=== PATIENT | female | born 1965 | race Caucasian/White ===

== ENCOUNTER 2018-02-14 23:27 | Inpatient (IN) | payer BC ==
[~2018-02-14] VITALS: Ht 154.9 cm; Wt 76.0 kg
[2018-02-14] MEDS ORDERED: SODIUM CHLORIDE 0.9% 1000ML 1,000 ML IV STA ×2 (23:40)
[2018-02-14] MEDS ORDERED: CHLORDIAZEPOXIDE 25 MG CAP PO ONE (23:45)
[2018-02-14] MEDS ORDERED: MULTI-VITAMIN INFUSION INJ 10 ML, THIAMINE HCL INJ 100 MG, FoLIC ACID INJ 1 MG in SODIU... IV ONE (23:45)
[2018-02-14 23:52] LABS: BASO % 0.1 %; BASO ABS # 0.01 K/uL (0-0.2); EOS % 0.4 %; EOS ABS # 0.04 K/uL (0-0.5); HEMATOCRIT 43.6 % (37-47); HEMOGLOBIN 15.7 g/dL (12.0-16.0); IG# 0.02 K/uL (0.00-0.02); LYMPH % 23.1 %; MEAN CELL VOLUME 90.8 fL (80-100); MEAN CORPUSCULAR HEMOGLOBIN 32.7 pg (25-34); MEAN PLATELET VOLUME 9.3 fL (7.4-10.4); MONO % 7.9 %; MONO ABS # 0.75 K/uL (0.11-0.59); NEUT % 68.3 %; NEUT ABS # 6.51 K/uL (1.4-6.5); PLATELET COUNT 304 K/uL (130-400); RED CELL DISTRIBUTION WIDTH CV 13.1 % (11.5-14.5); RED CELL DISTRIBUTION WIDTH SD 43.1 fL (36.4-46.3); WHITE BLOOD COUNT 9.53 K/uL (4.8-10.8)
[2018-02-15] VITALS (8 sets, daily range): BP systolic 111–139; BP diastolic 68–85; PULSE 68–109; TEMP 36.6–36.9; O2SAT 94–97; Ht 154.9 cm; Wt 76.0 kg
[2018-02-15 00:02] LABS: ALBUMIN 4.3 gm/dl (3.4-5.0); ALT/SGPT 43 U/L (12-78); AST/SGOT 42 U/L (15-37); BLOOD UREA NITROGEN 5 mg/dl (7-18); CALCIUM 9.2 mg/dl (8.5-10.1); CARBON DIOXIDE 31 mmol/L (21-32); CREATININE 0.73 mg/dl (0.60-1.20); GLUCOSE 109 mg/dl (70-99); INR 0.9 (0.9-1.1); LIPASE 147 U/L (73-393); POTASSIUM 3.2 mmol/L (3.5-5.1); PTT PATIENT 30.4 SECONDS (21.0-31.0); SODIUM 131 mmol/L (136-145)
[2018-02-15 00:05] LABS: ALKALINE PHOSPHATASE 111 U/L (45-117); TOTAL PROTEIN 9.3 gm/dl (6.4-8.2)
[2018-02-15] MEDS ORDERED: HYDR25TA4 PO (00:23)
[2018-02-15] MEDS ORDERED: PRLSR20 PO (00:23)
[2018-02-15] MEDS ORDERED: POTASSIUM CHLORIDE 10 MEQ TABCR PO STA (01:15)
[2018-02-15] MEDS ORDERED: NITROGLYCERIN 0.4 MG SL PER TAB CHARGE SL PRN (01:45)
[2018-02-15] MEDS ORDERED: GABAPENTIN 600 MG TAB PO SCH (01:45)
[2018-02-15] MEDS ORDERED: ALUMINUM/MAGNESIUM/SIMETH (MAALOX MAX) 30 ML UDC PO PRN (01:45)
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
[2018-02-15] MEDS: GABAPENTIN 1200MG LOADING DOSE PO SCH (03:30)
[2018-02-15] MEDS: LORAZEPAM 2 MG/ML 1 ML VIAL IV PRN (03:30)
[2018-02-15] MEDS: ONDANSETRON INJ 2 MG/ML 2 ML VIAL IV PRN (03:43)
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
[2018-02-15] MEDS: ENOXAPARIN 40 MG/0.4 ML SYR SC SCH (06:00)
--- NOTE | 2018-02-15 06:49 | DIAGNOSTIC IMAGING REPORT ---
CHEST ONE VIEW PORTABLE HISTORY: 52 years-old Female cp acute atypical chest pain COMPARISON: None available TECHNIQUE: Portable AP view of the chest FINDINGS: Cardiomediastinal and hilar silhouettes are within normal limits. No pneumothorax, pleural effusion, focal airspace consolidation or overt pulmonary edema. Bones of the chest appear grossly intact. Degenerative changes are noted about the bilateral shoulders. IMPRESSION: No acute process. The above report was generated using voice recognition software. It may contain grammatical, syntax or spelling errors. Electronically signed by: Moiz Blanton M.D. 02/15/2018 6:48 AM Dictated Date/Time: 02/15/2018 6:46 AM
[2018-02-15 07:05] LABS: BASO % 0.2 %; BASO ABS # 0.01 K/uL (0-0.2); EOS % 0.8 %; EOS ABS # 0.04 K/uL (0-0.5); HEMATOCRIT 35.7 % (37-47); HEMOGLOBIN 12.8 g/dL (12.0-16.0); IG# 0.02 K/uL (0.00-0.02); LYMPH % 39.5 %; LYMPH ABS # 1.94 K/uL (1.2-3.4); MEAN CELL VOLUME 91.3 fL (80-100); MEAN CORPUSCULAR HEMOGLOBIN 32.7 pg (25-34); MEAN CORPUSCULAR HGB CONC 35.9 g/dl (32-36); MEAN PLATELET VOLUME 9.1 fL (7.4-10.4); MONO % 9.2 %; MONO ABS # 0.45 K/uL (0.11-0.59); NEUT % 49.9 %; NEUT ABS # 2.45 K/uL (1.4-6.5); PLATELET COUNT 214 K/uL (130-400); RED CELL DISTRIBUTION WIDTH CV 13.2 % (11.5-14.5); RED CELL DISTRIBUTION WIDTH SD 43.7 fL (36.4-46.3); WHITE BLOOD COUNT 4.91 K/uL (4.8-10.8)
[2018-02-15 07:20] LABS: CALCIUM 7.9 mg/dl (8.5-10.1); CREATININE 0.63 mg/dl (0.60-1.20); POTASSIUM 3.4 mmol/L (3.5-5.1)
[2018-02-15] MEDS: HYDROCHLOROTHIAZIDE 25 MG TAB PO SCH (08:18)
[2018-02-15] MEDS: PANTOprazole SOD 40 MG TAB PO SCH (08:18)
[2018-02-15] MEDS: MULTI-VITAMIN INFUSION INJ 10 ML, THIAMINE HCL INJ 100 MG, FoLIC ACID INJ 1 MG in SODIU... IV SCH (08:58)
[2018-02-15] MEDS: GABAPENTIN 600MG Q6H DOSE PO SCH ×2 (10:29→17:34)
[2018-02-15] MEDS: MAGNESIUM SULFATE 1GM / D5W 100 ML IV SCH ×2 (13:18→14:11)
[2018-02-15] MEDS ORDERED: LORAZEPAM INJ 1 MG in SYRINGE 0.5 ML IV STA (13:32)
[2018-02-15] MEDS: ACETAMINOPHEN 325 MG TAB PO PRN (22:16)
[2018-02-15] MEDS: GABAPENTIN 600MG Q8H DOSE PO SCH (23:48)
[2018-02-16] MEDS: GABAPENTIN 1200MG LOADING DOSE PO SCH (02:48)
[2018-02-16] MEDS: ACETAMINOPHEN 325 MG TAB PO PRN ×3 (02:48→21:29)
[2018-02-16 04:22] VITALS: BP 121/77; PULSE 60; TEMP 36.3; O2SAT 96
[2018-02-16] MEDS: ENOXAPARIN 40 MG/0.4 ML SYR SC SCH (05:38)
[2018-02-16 05:46] LABS: HEMATOCRIT 36.8 % (37-47); HEMOGLOBIN 12.5 g/dL (12.0-16.0); MEAN CELL VOLUME 94.1 fL (80-100); MEAN PLATELET VOLUME 9.2 fL (7.4-10.4); PLATELET COUNT 196 K/uL (130-400); RED CELL DISTRIBUTION WIDTH CV 13.4 % (11.5-14.5); WHITE BLOOD COUNT 3.37 K/uL (4.8-10.8)
[2018-02-16 06:11] LABS: CALCIUM 8.1 mg/dl (8.5-10.1); CREATININE 0.66 mg/dl (0.60-1.20); POTASSIUM 3.8 mmol/L (3.5-5.1)
[2018-02-16 06:56] LABS: EOS % 2.4 %; EOS ABS # 0.08 K/uL (0-0.5); LYMPH % 51.3 %; LYMPH ABS # 1.73 K/uL (1.2-3.4); MONO % 11.6 %; MONO ABS # 0.39 K/uL (0.11-0.59); NEUT % 34.7 %; NEUT ABS # 1.17 K/uL (1.4-6.5)
[2018-02-16 07:20] VITALS: BP 128/77; PULSE 67; TEMP 36.5; O2SAT 95
[2018-02-16] MEDS: GABAPENTIN 600MG Q8H DOSE PO SCH ×2 (07:48→16:17)
[2018-02-16] MEDS: HYDROCHLOROTHIAZIDE 25 MG TAB PO SCH (07:48)
[2018-02-16] MEDS: PANTOprazole SOD 40 MG TAB PO SCH (07:48)
[2018-02-16] MEDS: MULTI-VITAMIN INFUSION INJ 10 ML, THIAMINE HCL INJ 100 MG, FoLIC ACID INJ 1 MG in SODIU... IV SCH (08:55)
[2018-02-16] MEDS ORDERED: NURSING VERBAL MED ORDER ONE (09:15)
[2018-02-16] MEDS ORDERED: LORAZEPAM INJ 0.5 MG in SYRINGE 0.75 ML IV ONE (09:30)
[2018-02-16 11:23] VITALS: BP 130/81; PULSE 72; TEMP 36.7; O2SAT 92
[2018-02-16] MEDS: LORAZEPAM 2 MG/ML 1 ML VIAL IV PRN (14:01)
[2018-02-16 15:56] VITALS: BP 115/70; PULSE 71; TEMP 36.6; O2SAT 95
[2018-02-16] MEDS ORDERED: LORAZEPAM INJ 2 MG in SYRINGE 1 ML IV STA (15:57)
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
[2018-02-16 19:54] VITALS: BP 120/74; PULSE 63; TEMP 36.6; O2SAT 96
[2018-02-16] MEDS: ONDANSETRON INJ 2 MG/ML 2 ML VIAL IV PRN (21:29)
[2018-02-17] VITALS (7 sets, daily range): BP systolic 96–172; BP diastolic 60–87; PULSE 59–79; TEMP 36.4–36.8; O2SAT 95–99
[2018-02-17] MEDS: GABAPENTIN 1200MG LOADING DOSE PO SCH (03:22)
[2018-02-17] MEDS: LORAZEPAM 2 MG/ML 1 ML VIAL IV PRN (04:01)
[2018-02-17] MEDS: ENOXAPARIN 40 MG/0.4 ML SYR SC SCH (06:00)
[2018-02-17] MEDS: GABAPENTIN 600MG Q12H DOSE PO SCH ×2 (06:17→17:29)
[2018-02-17 07:33] LABS: EOS % 2.5 %; EOS ABS # 0.11 K/uL (0-0.5); HEMATOCRIT 36.8 % (37-47); HEMOGLOBIN 12.9 g/dL (12.0-16.0); LYMPH % 43.5 %; LYMPH ABS # 1.89 K/uL (1.2-3.4); MEAN CELL VOLUME 94.1 fL (80-100); MEAN CORPUSCULAR HGB CONC 35.1 g/dl (32-36); MEAN PLATELET VOLUME 9.2 fL (7.4-10.4); MONO % 8.8 %; MONO ABS # 0.38 K/uL (0.11-0.59); NEUT % 45.2 %; NEUT ABS # 1.96 K/uL (1.4-6.5); PLATELET COUNT 175 K/uL (130-400); RED CELL DISTRIBUTION WIDTH CV 13.2 % (11.5-14.5); RED CELL DISTRIBUTION WIDTH SD 45.2 fL (36.4-46.3); WHITE BLOOD COUNT 4.34 K/uL (4.8-10.8)
[2018-02-17] MEDS: PANTOprazole SOD 40 MG TAB PO SCH (07:58)
[2018-02-17] MEDS: HYDROCHLOROTHIAZIDE 25 MG TAB PO SCH (07:58)
[2018-02-17] MEDS: CYANOCOBALAMIN 500 MCG TAB (VIT B-12) PO SCH (07:59)
[2018-02-17] MEDS: THIAMINE HCL 50 MG TAB PO SCH (07:59)
[2018-02-17 08:03] LABS: CALCIUM 8.5 mg/dl (8.5-10.1); CREATININE 0.67 mg/dl (0.60-1.20); POTASSIUM 3.7 mmol/L (3.5-5.1)
[2018-02-17] MEDS ORDERED: LORAZEPAM INJ 1 MG in SYRINGE 0.5 ML IV ONE ×2 (09:45→15:45)
[2018-02-17] MEDS: ACETAMINOPHEN 325 MG TAB PO PRN (11:02)
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
[2018-02-17] MEDS ORDERED: hydrOXYzine HCL 25 MG TAB PO PRN (15:45)
[2018-02-18 00:02] VITALS: BP 131/82; PULSE 72; TEMP 36.6; O2SAT 93
[2018-02-18 01:45] VITALS: BP 132/84; PULSE 106; TEMP 36.6; O2SAT 98
[2018-02-18] MEDS: LORAZEPAM 2 MG/ML 1 ML VIAL IV PRN (01:47)
[2018-02-18] MEDS: GABAPENTIN 1200MG LOADING DOSE PO SCH (03:03)
[2018-02-18] MEDS: ENOXAPARIN 40 MG/0.4 ML SYR SC SCH (05:44)
[2018-02-18 07:08] VITALS: BP 132/84; PULSE 86; TEMP 36.6; O2SAT 95
[2018-02-18 07:35] LABS: BASO % 0.2 %; BASO ABS # 0.01 K/uL (0-0.2); EOS % 2.5 %; EOS ABS # 0.12 K/uL (0-0.5); HEMOGLOBIN 13.7 g/dL (12.0-16.0); IG# 0.01 K/uL (0.00-0.02); LYMPH ABS # 2.25 K/uL (1.2-3.4); MEAN CELL VOLUME 93.9 fL (80-100); MEAN CORPUSCULAR HEMOGLOBIN 32.2 pg (25-34); MEAN CORPUSCULAR HGB CONC 34.3 g/dl (32-36); MEAN PLATELET VOLUME 9.8 fL (7.4-10.4); MONO % 6.9 %; MONO ABS # 0.33 K/uL (0.11-0.59); NEUT % 43.2 %; NEUT ABS # 2.07 K/uL (1.4-6.5); PLATELET COUNT 195 K/uL (130-400); RED CELL DISTRIBUTION WIDTH SD 44.4 fL (36.4-46.3); WHITE BLOOD COUNT 4.79 K/uL (4.8-10.8)
[2018-02-18 08:02] LABS: CREATININE 0.67 mg/dl (0.60-1.20); POTASSIUM 3.9 mmol/L (3.5-5.1)
[2018-02-18] MEDS: THIAMINE HCL 50 MG TAB PO SCH (08:19)
[2018-02-18] MEDS: PANTOprazole SOD 40 MG TAB PO SCH (08:19)
[2018-02-18] MEDS: CYANOCOBALAMIN 500 MCG TAB (VIT B-12) PO SCH (08:20)
[2018-02-18] MEDS: HYDROCHLOROTHIAZIDE 25 MG TAB PO SCH (08:21)
[2018-02-18] MEDS ORDERED: THM50 PO (15:05)
[2018-02-18] MEDS ORDERED: ATR25 PO (15:05)
[2018-02-18] MEDS ORDERED: OMEP20TA PO (15:05)
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
[2018-02-18 15:30] VITALS: BP 132/84; PULSE 86; TEMP 36.6; O2SAT 95
[2018-02-18] MEDS ORDERED: GABAPENTIN 600MG X1 DOSE PO SCH (18:00)
== END 2018-02-18 17:06 | disposition home or self-care (01) | DRG 897 ==
LOC: EDBD 23:27 → C.EDB 23:29 → EEVIPCON 02-15 01:40 → C.MED 02-15 01:40 → ENRESERV 02-15 01:46 → C.MED 02-17 03:27 → ENRESERV 02-17 18:06 → C.MS4W 02-17 19:02
PROVIDERS: ADMIT Internal Medicine; ATTEND Hospitalist
DX: F10.232 Alcohol dependence with withdrawal with perceptual disturbance (principal); I10 Essential (primary) hypertension; E87.6 Hypokalemia; R11.2 Nausea with vomiting, unspecified; R07.9 Chest pain, unspecified; K21.9 Gastro-esophageal reflux disease without esophagitis; F41.9 Anxiety disorder, unspecified; Z87.891 Personal history of nicotine dependence